=== PATIENT | male | born 1990 | race Caucasian/White ===

== ENCOUNTER 2017-06-29 05:02 | Emergency (ER) | payer OTHER ==
[~2017-06-29] VITALS: Ht 193 cm; Wt 129.3 kg
[~2017-06-29 05:02] MED LIST: ANAPROX DS550 MG PO; BACTRIM DS TAB1 EACH PO; CARAFATE 1 GM TA1 G1 PO; COLCHICINE0.6 MG PO; EFFEXOR 5050 MG/1 T1 PO; FLEXERIL PO; HYDROCODON-ACE1 EAC7 PO; IBUPROFEN 800800 M1 PO; KEFLEX500 MG PO; MAXALT5 MG PO; MECLIZINE HCL25 M1 PO; MEDROLDOSEPACK PO; NOHOMEMEDICATIONS; NORCO 5-325 TA1 EACH PO; NORFLEX100 MG PO; ROBAXIN500 MG PO; TOPAMAX 100 MG100 MG PO; TOPAMAX25 M1 PO; TORADOL 10 MG T10 MG PO; TRAMADOL 50 MG50 MG PO; ULTRAM 50MG TAB50 MG PO; ZANTAC 7575 MG PO; ZOFRAN 4 MG ORAL4 MG PO; ZOFRAN ODT4 MG PO; ZOFRAN4 MG PO
[2017-06-29 05:29] LABS: ABSOLUTE EOSINOPHILS 0.2 thou/uL (0.0-0.7); ABSOLUTE LYMPHOCYTES 1.8 thou/uL (0.8-5.3); ABSOLUTE MONOCYTES 0.5 thou/uL (0.0-1.2); ABSOLUTE NEUTROPHILS 3.6 thou/uL (1.6-8.1); BASOPHILS 0.7 %; EOSINOPHILS 3.6 %; HEMATOCRIT 46.4 % (42.0-52.0); HEMOGLOBIN 15.8 gm/dL (14.0-18.0); LYMPHOCYTES 30.1 %; MCH 29.8 pg (26.0-34.0); MCHC 34.1 g/dL (28.0-37.0); MCV 87.4 fL (80.0-100.0); MONOCYTES 7.5 %; MPV 10.5 fl. (7.2-11.1); NUCLEATED RBCS 0 /100WBC; PLATELET COUNT* 128 thou/uL (150-400); POLYS 58.1 %; RBC 5.31 mil/uL (4.50-6.00); RDW-CV 12.9 % (10.5-14.5); WBC 6.1 thou/uL (4.0-11.0)
[2017-06-29 05:41] LABS: ANION GAP 8 mmol/L (7-16); BUN 25 mg/dL (7-18); CALCIUM 9.2 mg/dL (8.5-10.1); CHLORIDE 105 mmol/L (98-107); CO2 28 mmol/L (21-32); CREATININE 1.2 mg/dL (0.6-1.3); GLUCOSE 99 mg/dL (70-99); POTASSIUM 3.8 mmol/L (3.5-5.1); SODIUM 141 mmol/L (136-145)
[2017-06-29 05:46] LABS: ALBUMIN 4.1 g/dL (3.4-5.0); ALKALINE PHOSPHATASE 80 U/L (46-116); SGOT 22 U/L (15-37); SGPT 32 U/L (30-65); TOTAL BILIRUBIN 0.9 mg/dL (<0.1-1.0); TOTAL PROTEIN 6.9 g/dL (6.4-8.2); TROPONIN-I LEVEL <0.06 ng/mL (<0.06)
[2017-06-29 07:07] VITALS: BP 104/45
--- NOTE | 2017-06-29 11:54 | EKG ---
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1990 Requested By: Briana Gregory Order Number: [id number] MD: Valentín Marion Measurements Intervals [place] Rate: 51 P: -30 RI: 160 QRS: 27 QRSD: 99 T: 23 QT: 421 QTc: 388 Interpretive Statements Sinus bradycardia ST elev, probable normal early repol pattern Compared to ECG 10/17/2014 13:25:58 rate slowed Electronically Signed On 06-29-2017 11:54:21 [employer]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
== END 2017-06-29 07:07 | disposition home or self-care (01) ==
LOC: M.ERS 05:02
PROVIDERS: Emergency Medicine
DX: R55 Syncope and collapse (principal); R00.1 Bradycardia, unspecified; Z88.8 Allergy status to other drugs, medicaments and biological substances

== ENCOUNTER 2017-11-08 07:06 | Emergency (ER) | payer OTHER ==
[~2017-11-08] VITALS: Ht 193 cm; Wt 130.6 kg
[2017-11-08 07:16] VITALS: BP 124/64
[2017-11-08] MEDS ORDERED: IBU800 MG PO (07:18)
[2017-11-08] MEDS ORDERED: ULTRAM 50MG TAB50 MG PO (07:42)
== END 2017-11-08 07:48 | disposition home or self-care (01) ==
LOC: M.ERS 07:06
DX: R51 Headache (principal); Z88.8 Allergy status to other drugs, medicaments and biological substances

== ENCOUNTER 2018-09-07 20:35 | Emergency (ER) | payer BC ==
[~2018-09-07] VITALS: Ht 195.6 cm; Wt 157.8 kg
[~2018-09-07 20:35] MED LIST changes: +IBU800 MG PO
[2018-09-07] MEDS ORDERED: PROAIR HFA8.5 GM (20:55)
[2018-09-07 22:16] VITALS: BP 149/79
== END 2018-09-07 22:17 | disposition home or self-care (01) ==
LOC: M.ERS 20:35
DX: R21 Rash and other nonspecific skin eruption (principal); T48.6X5A Adverse effect of antiasthmatics, initial encounter; Z88.8 Allergy status to other drugs, medicaments and biological substances; Y92.89 Other specified places as the place of occurrence of the external cause

== ENCOUNTER 2018-09-11 04:04 | Emergency (ER) | payer BC ==
[~2018-09-11] VITALS: Ht 193 cm; Wt 154.2 kg
[~2018-09-11 04:04] MED LIST changes: +PROAIR HFA8.5 GM
[2018-09-11] MEDS ORDERED: BENADRYL25 MG (04:20)
[2018-09-11] MEDS ORDERED: PREDNISONE 10 M10 MG (04:20)
[2018-09-11 05:43] VITALS: BP 137/75
== END 2018-09-11 05:43 | disposition home or self-care (01) ==
LOC: M.ERS 04:04
DX: L50.9 Urticaria, unspecified (principal); T38.0X5A Adverse effect of glucocorticoids and synthetic analogues, initial encounter; Y92.89 Other specified places as the place of occurrence of the external cause; X58.XXXA Exposure to other specified factors, initial encounter; F17.210 Nicotine dependence, cigarettes, uncomplicated; Z88.8 Allergy status to other drugs, medicaments and biological substances

== ENCOUNTER 2021-01-21 02:55 | Emergency (ER) | payer OTHER ==
[~2021-01-21] VITALS: Ht 193 cm; Wt 158.8 kg
[~2021-01-21 02:55] MED LIST changes: +BENADRYL25 MG; +PREDNISONE 10 M10 MG
[2021-01-21] MEDS ORDERED: AMOXIL 875 MG875 M1 PO (03:55)
[2021-01-21] MEDS ORDERED: Magic Mouthwash SW&SWALLOW (03:55)
[2021-01-21 04:08] VITALS: BP 123/72
== END 2021-01-21 04:09 | disposition home or self-care (01) ==
LOC: M.ERS 02:55
DX: J03.00 Acute streptococcal tonsillitis, unspecified (principal); Z20.822 Contact with and (suspected) exposure to COVID-19; F17.210 Nicotine dependence, cigarettes, uncomplicated; Z88.1 Allergy status to other antibiotic agents